=== PATIENT | female | born 1965 | race Caucasian/White ===

== ENCOUNTER 2024-06-15 10:11 | Emergency (ER) | payer BC, SELFPAY ==
[2024-06-15 10:34] VITALS: BP 116/80; PULSE 94; RESP 16; TEMP 36.8; O2SAT 98
--- NOTE | 2024-06-15 11:05 | ED.URI ---
HPI - URI/Sore Throat General Chief Complaint: Upper Respiratory Infection Stated Complaint: sorethroat Time Seen by Provider: 06/15/24 10:56 Source: patient and RN notes reviewed Mode of arrival: ambulatory Limitations: no limitations History of Present Illness HPI Narrative: Patient presents today complaining of 2 day history of sore throat with clogging of the right ear, congestion, rhinorrhea, cough, postnasal drip. She has been trying Aleve, Zicam, and Chloraseptic with some mild relief. History emphysema and breast cancer. Patient just got off the plane a few days ago from [place] and was having trouble equalizing her ears. Related Data Home Medications Medication Instructions Recorded Confirmed lisinopril 40 mg tablet 40 mg PO DAILY 06/15/24 06/15/24 thyroid (pork) 15 mg tablet ([facility]IDE 15 mg PO DAILY 06/15/24 06/15/24 Thyroid) thyroid (pork) 30 mg tablet (M[facility]IDE 30 mg PO DAILY 06/15/24 06/15/24 Thyroid) Allergies Allergy/AdvReac Type Severity Reaction Status Date / Time amoxicillin AdvReac Intermediate Nausea and Verified 06/15/24 11:00 Vomiting Review of Systems Review of Systems: CONSTITUTIONAL: Denies body aches, fever, chills, or sweats. EYES: Denies visual changes, redness, or discharge. ENT: + sore throat, ear clogging, congestion, rhinorrhea, postnasal drip CARDIOVASCULAR: Denies chest pain, palpitations, or edema. RESPIRATORY: Denies dyspnea.+ cough GASTROINTESTINAL: Denies abdominal pain, nausea, vomiting, or diarrhea. GENITOURINARY: Denies dysuria or hematuria. SKIN: Denies rash, itching, or wounds. MUSCULOSKELETAL: Denies back pain, joint pain, or myalgia. NEUROLOGIC: Denies headache, numbness, tingling, or weakness. PSYCH: Denies depression or anxiety. [facility] Past Medical History Medical History (Updated 06/15/24 @ 11:20 by Nilsa Snow, [employer], ) Breast cancer Emphysema, unspecified Comments At time of signature, I have reviewed and agree with nursing past medical, surgical, social and family history unless otherwise noted. Please see nursing chart for further information. There is no relevant family history pertinent to the presenting complaint Exam Narrative: GENERAL: Mildly ill-appearing, well-nourished, and in no acute distress. HEAD: Normocephalic, atraumatic. EYES: EOMI. No redness or drainage. Conjunctivae normal. ENT: Mucous membranes pink and moist. Nares mildly congested. No rhinorrhea. Right TM occluded by cerumen impaction. Left TM normal. Throat mildly erythematous without edema or exudate. Uvula midline. NECK: Normal AROM. Supple. No lymphadenopathy. CHEST: No respiratory distress. Clear to auscultation. HEART: Regular rate and rhythm. No murmur appreciated. EXTREMITIES: Normal range of motion. No edema. SKIN: Warm, dry, no rash. Capillary refill normal. Normal skin turgor. NEURO: No focal deficits. Alert and oriented x3. Gait steady. PSYCH: Normal affect. No signs of depression or anxiety. Course Course Level of Care: Express Care Visit Vital Signs Vital signs: Vital Signs Temperature 98.2 F 06/15/24 10:34 Pulse Rate 94 06/15/24 10:34 Respiratory Rate 16 06/15/24 10:34 Blood Pressure 116/80 06/15/24 10:34 Pulse Oximetry 98 06/15/24 10:34 Oxygen Delivery Room Air 06/15/24 10:34 Temperature 98.2 F 06/15/24 10:34 Pulse Rate 94 06/15/24 10:34 Respiratory Rate 16 06/15/24 10:34 Blood Pressure 116/80 06/15/24 10:34 Pulse Oximetry 98 06/15/24 10:34 Oxygen Delivery Room Air 06/15/24 10:34 Reviewed MDM - URI/Sore Throat MDM Narrative Medical decision making narrative: Rapid strep negative, influenza negative. COVID positive. Prescription for Paxlovid sent to pharmacy. Anticipatory guidance given. Differential Diagnosis Differential diagnosis: Likely upper respiratory infection, otitis media, viral infection, influenza, pharyngitis and other (Strep throat, COVID) Lab Data Attestation: I
[2024-06-15 11:10] LABS: EDCOVIDSCREEN Positive (Negative); EDINFLUASCREEN Negative (Negative); EDINFLUBSCREEN Negative (Negative); EDSTREPNEGPOS1 Negative (Negative)
== END 2024-06-15 11:20 | disposition home or self-care (01) ==
PROVIDERS: Emergency Provider Nurse Practitioner
DX: U07.1 COVID-19 (principal); J43.9 Emphysema, unspecified; Z85.3 Personal history of malignant neoplasm of breast
CPT/HCPCS: 87081; 87426; 87804; 87880; 99213; G0463